=== PATIENT | male | born 1950 | race Caucasian/White ===

== ENCOUNTER 2020-12-30 22:32 | Emergency (ER) | payer MEDICARE ==
[~2020-12-30] VITALS: Ht 182.9 cm; Wt 81.7 kg
[2020-12-30] MEDS ORDERED: LIDOcaine 2% 10ml TOPICAL JELLY (Urojet) MM ONE (23:20)
[2020-12-30] MEDS ORDERED: LIDOcaine 2% 10ml TOPICAL JELLY (Urojet) TP ONE (23:20)
[2020-12-30] MEDS ORDERED: CEFD300C3 PO (23:49)
[2020-12-31] MEDS ORDERED: loperamide 2mg capsule PO ONE (00:30)
[2020-12-31 00:47] VITALS: BP 119/81
== END 2020-12-31 00:50 | disposition home or self-care (01) ==
LOC: ER 22:32
DX: R33.9 Retention of urine, unspecified (principal); N39.0 Urinary tract infection, site not specified; E11.9 Type 2 diabetes mellitus without complications; F17.200 Nicotine dependence, unspecified, uncomplicated; Z79.2 Long term (current) use of antibiotics
CPT/HCPCS: 51702; 82948; 99284